=== PATIENT | male | born 1975 | race African-American/Black ===

== ENCOUNTER 2017-04-18 17:33 | Emergency (ER) | payer OTHER ==
[~2017-04-18] VITALS: Ht 180.3 cm; Wt 91.2 kg
--- NOTE | 2017-04-18 18:57 | NUR ---
PT IS IN ROOM #2A. DR SIMPSON EVALUATED THE PT.
--- NOTE | 2017-04-18 19:11 | NUR ---
Patient discharged to home in stable conditon. Written and verbal after care instructions given. Patient verbalizes understanding of instructions.
== END 2017-04-18 19:12 | disposition home or self-care (01) ==
LOC: ER 17:33
DX: J06.9 Acute upper respiratory infection, unspecified (principal)
CPT/HCPCS: A4663